=== PATIENT | female | born 1960 | race Caucasian/White ===

== ENCOUNTER → 2017-05-08 | Outpatient (CLI) | payer BC | END | disposition home or self-care (01) | LOC: RAD 08:43 | PROVIDERS: ATTEND Neurological Surgery | DX: M41.86 Other forms of scoliosis, lumbar region (principal); M41.84 Other forms of scoliosis, thoracic region | CPT/HCPCS: 72082 ==

== ENCOUNTER 2020-03-01 15:00 | Outpatient (CLI) | payer BC ==
[2020-03-01] MEDS ORDERED: LIDOCAINE 1%, 10ML ONE (15:13)
== END 2020-03-01 23:59 | disposition home or self-care (01) ==
LOC: RAD 15:00
PROVIDERS: ATTEND Physician Assistant
DX: R18.8 Other ascites (principal); C56.9 Malignant neoplasm of unspecified ovary
CPT/HCPCS: 49083; J3490

== ENCOUNTER → 2020-03-08 | Outpatient (CLI) | payer BC ==
[~2020-03-08] MED LIST: LIDOCAINE 1%, 10ML ONE
== END | disposition home or self-care (01) ==
LOC: RAD 12:37
PROVIDERS: ATTEND Specialist
DX: R18.0 Malignant ascites (principal); C77.0 Secondary and unspecified malignant neoplasm of lymph nodes of head, face and neck; F41.1 Generalized anxiety disorder; Z79.01 Long term (current) use of anticoagulants; Z85.43 Personal history of malignant neoplasm of ovary
CPT/HCPCS: 49083; J3490